=== PATIENT | male | born 1985 | race Caucasian/White ===

== ENCOUNTER 2021-07-12 18:07 | Emergency (ER) | payer OTHER, SELFPAY ==
[2021-07-12 18:25] VITALS: BP 128/86; BP 144/107; PULSE 84; O2SAT 98; BMI 20.7
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
--- NOTE | 2021-07-12 18:41 | PC.NURSE ---
t/w assessed pt L arm, there are multiple superficial cuts down the left arm, pt reported cat scratches
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
--- NOTE | 2021-07-12 19:56 | PC.NURSE ---
pharmacy in with pt for med rec.
--- NOTE | 2021-07-12 20:05 | PHA.MEDREC ---
Pharmacy Consult ? Medication Reconciliation Pharmacy has completed the medication reconciliation. Spoke with patient in [facility]. Patient only reports being on Methadone and received his dose this morning. Methadone Clinic: [facility] [phone]
--- NOTE | 2021-07-12 20:25 | PC.NURSE ---
pt refused labs but was ok with a covid swab. collected and sent.
[2021-07-12 20:27] VITALS: BP 134/85; PULSE 75; RESP 18; O2SAT 99
[2021-07-12 20:48] LABS: COVID-19 Test Negative (Negative); IDNOW Serial# 16C4AD1C
[2021-07-12] MEDS: Diphth,Pertus(ACell),Tet Adult 0.5 ML SYRINGE IM (20:52)
--- NOTE | 2021-07-12 20:57 | PC.NURSE ---
pt refusing all medications, pt is on the phone with his girlfrind and is saying sorry to her, pt is alittle teary.
--- NOTE | 2021-07-12 22:09 | PC.NURSE ---
pt was willing to take his medications but refused the labs, pt states he just broke up with his girlfriend and states it was the thing he was worried about. pt was on the phone with her and crying. pt has now settle down no longer tearful and opened up about his life then was willing to take his medications. pt also stated to this rn not to let anyone know he is cooperated with me.
--- NOTE | 2021-07-13 00:21 | PC.NURSE ---
urine not obtained at this time pt is aware of the need to obtain.
[2021-07-13 06:44] VITALS: RESP 16
--- NOTE | 2021-07-13 07:31 | PC.NURSE ---
patient appears to remain asleep at present respirations are even and unlabored patient appears in no distress.
[2021-07-13] MEDS: Nicotine Polacrilex 2 MG GUM BUCCAL ×2 (14:33→18:36)
--- NOTE | 2021-07-13 15:46 | PC.NURSE ---
client had been encouraged to provide labs and thereafter when approached with methadone dose, client declined.
[2021-07-13] MEDS: methADONE HCl 20 MG/2 ML ORAL.CONC 30 MG PO (16:20)
--- NOTE | 2021-07-14 | ECG_ITS ---
Test Reason : med clearance Blood Pressure : / mmHG Vent. Rate : 060 BPM Atrial Rate : 060 BPM P-R Int : 136 ms QRS Dur : 086 ms QT Int : 418 ms P-R-T Axes : 042 081 061 degrees QTc Int : 418 ms Normal sinus rhythm Normal ECG No previous ECGs available Referred By: Brenda Villalpando Electronically Signed By:ANKUR PARADA MD
--- NOTE | 2021-07-14 07:28 | PC.NURSE ---
patient appears to remain asleep at present respirations are even and unlabored patient appears in no distress
[2021-07-14 07:52] VITALS: BP 113/71; PULSE 52; RESP 14; TEMP 36.8; O2SAT 97
[2021-07-14] MEDS: Nicotine Polacrilex 2 MG GUM BUCCAL ×3 (08:52→17:58)
[2021-07-14] MEDS: methADONE HCl 20 MG/2 ML ORAL.CONC 30 MG PO (08:52)
--- NOTE | 2021-07-14 13:35 | MHC.CARE ---
Call from patient's mother who wanted to express her concern if patient was being discharged. She stated that her son is suffering with severe depression and not been well since he lost his job. Patient has called her and is convinced that the hospital will have him taken out on a Section 35 and that he was not going to be here long. Reported her and her are willing to take him home provided he gets some help and has an after plan. Reassured that staff will communicate with family regarding discharge.
--- NOTE | 2021-07-14 15:06 | PC.NURSE ---
patient recanted permission to contact mother
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
== END 2021-07-15 03:22 | disposition home or self-care (01) ==
PROVIDERS: Physician Assistant; Emergency Provider Emergency Medicine
DX: R45.851 Suicidal ideations (principal); S50.812A Abrasion of left forearm, initial encounter; F11.20 Opioid dependence, uncomplicated; W55.03XA Scratched by cat, initial encounter; Y93.9 Activity, unspecified; Y92.9 Unspecified place or not applicable; Y99.9 Unspecified external cause status; Z20.822 Contact with and (suspected) exposure to COVID-19
CPT/HCPCS: 87635; 90471; 90715; 93005; 99284; 99285